=== PATIENT | female | born 1955 | race Caucasian/White ===

== ENCOUNTER → 2017-02-18 | Day surgery (SDC) | payer OTHER, BC ==
[~2017-02-18] VITALS: Ht 149.9 cm; Wt 66.4 kg
[~2017-02-18] MED LIST: CLARITIN10 MG PO; COZAAR50 MG PO; DESYREL50 MG PO; DICYCLOMINE HCL20 MG PO; FISH OIL 1,0001 EAC5 PO; HYDROCODON-ACE1 EAC4 PO; LAMICTAL100 MG PO; MECLIZINE HCL25 MG PO; MOBIC15 MG PO; PRILOSEC20 MG PO; PROZAC20 MG PO; ROBAXIN500 MG PO; VITAMIN D3400 UNI1 PO; WELLBUTRIN XL300 M2 PO
--- NOTE | ~2017-02-18 | OR ---
PATIENT'S NAME: [facility] AGE: 61 Y [address] ROOM: [place] [id number] LOCATION: [facility] ADMIT DATE: 02/18/2017 OR/Procedure Report DISCHARGE DATE: FAMILY PHYSICIAN: BRENDON STOUT PA-C ATTENDING PHYSICIAN: Elana Vasquez SURGEON: Stevenson Glover MD FEED MIXER: DATE OF PROCEDURE: 02/18/2017 PROCEDURE: Transforaminal epidural steroid injection in the right lumbar 3-4 space. INDICATION: The patient had degenerative lumbar disk disease with radiculopathy. The risks, benefits, and alternatives were explained to the patient, she wished to proceed. PROCEDURE IN DETAIL: She was taken to the procedure room, placed in prone position. The back was prepped with Betadine x3 and a sterile drape applied over top. Fluoroscopy was used to identify the L3-4 interspace. The skin was numbed with 3 mL of 1% lidocaine. Then, a 22-gauge spinal needle with gentle manual bend was advanced into position. Once it was felt to be in good position, this was confirmed in the AP and lateral views with injection of contrast approximately 1.5 total mL. This showed good epidural spread. No intravascular uptake. No intrathecal uptake. Next, a mixture of 2 mL of 2% lidocaine and 10 mg of preservative-free Decadron were injected without complication. The stylette placed, needle withdrawn, and hemostasis was achieved. BLOOD LOSS: None. COMPLICATIONS: None. STEVENSON GLOVER MD JJP/modl /[id number] d: 02/19/17 0026 t: 02/27/17 1250, OPERATIVE SUMMARY
== END | disposition disaster alternative care site (69) ==
LOC: GPOC 02-06 14:00
PROC: 3E0R3BZ Introduction of Anesthetic Agent into Spinal Canal, Percutaneous Approach (ICD-10-PCS; principal; 2017-02-18)
PROC: 3E0R33Z Introduction of Anti-inflammatory into Spinal Canal, Percutaneous Approach (ICD-10-PCS; 2017-02-18)
DX: M54.5 Low back pain (principal); M51.16 Intervertebral disc disorders with radiculopathy, lumbar region; M43.16 Spondylolisthesis, lumbar region; I10 Essential (primary) hypertension; F41.9 Anxiety disorder, unspecified; G47.33 Obstructive sleep apnea (adult) (pediatric); F31.9 Bipolar disorder, unspecified; E66.9 Obesity, unspecified; Z68.29 Body mass index [BMI] 29.0-29.9, adult; Z88.2 Allergy status to sulfonamides; Z88.8 Allergy status to other drugs, medicaments and biological substances; Z87.891 Personal history of nicotine dependence; Z98.890 Other specified postprocedural states
CPT/HCPCS: J1100